=== PATIENT | female | born 1970 | race African-American/Black ===

== ENCOUNTER 2018-08-06 00:53 | Emergency (ER) | payer BC ==
[~2018-08-06] VITALS: Ht 152.4 cm; Wt 95.9 kg
[2018-08-06 01:00] VITALS: Ht 152.4 cm; Wt 95.9 kg
[2018-08-06] MEDS ORDERED: ZOFRAN ODT4 MG/UDTAB (01:03)
[2018-08-06 01:53] LABS: APPEARANCE CLEAR (CLEAR); BILIRUBIN NEGATIVE (NEGATIVE); COLOR YELLOW (YELLOW); GLUCOSE NEGATIVE (NEGATIVE); KETONE NEGATIVE (NEGATIVE); NITRITE NEGATIVE (NEGATIVE); PROTEIN NEGATIVE (NEGATIVE); SPECIFIC GRAVITY 1.015 (1.005-1.020); UROBILINOGEN NORMAL (NORMAL)
[2018-08-06 01:55] LABS: BASOPHILS 0.6 % (0-2); EOSINOPHILS 2.8 % (0-7); HEMATOCRIT 40.3 % (36.0-48.0); HEMOGLOBIN 13.4 g/dL (12-16); IMMATURE GRANULOCYTES 0.2 % (0-5); LYMPHOCYTES 38.4 % (15-50); MCH 29.7 pg (26.0-34.0); MCHC 33.3 g/dL (31.0-37.0); MCV 89.4 fL (80.0-100.0); MEAN PLATELET VOLUME 10.9 fL (7.4-10.4); PLATELET COUNT 258 10x3/uL (130-400); RBC 4.51 10x6/uL (4.00-5.40); RDW 13.3 % (11.5-14.5); WBC 6.5 10x3/uL (4.8-10.8)
[2018-08-06 02:08] LABS: ALBUMIN 3.1 g/dL (3.4-5.0); ANION GAP 9.2 mmol/L (8-16); BILIRUBIN - TOTAL 0.44 mg/dL (0.2-1.3); CALCIUM 8.4 mg/dL (8.5-10.1); CARBON DIOXIDE 30.6 mmol/L (21.0-32.0); CREATININE - SERUM 0.9 mg/dL (0.6-1.3); POTASSIUM - SERUM 3.8 mmol/L (3.5-5.1); PROTEIN - SERUM 7.3 g/dL (6.4-8.2)
[2018-08-06 02:14] LABS: HCG SERUM NEGATIVE (NEGATIVE)
[2018-08-06] MEDS ORDERED: ZOFRAN4 MG PO (04:08)
[2018-08-06] MEDS ORDERED: FLAGYL500 MG PO (04:08)
[2018-08-06] MEDS ORDERED: LEVOFLOXACIN500 MG PO (04:08)
[2018-08-06 05:43] VITALS: BP 115/65
== END 2018-08-06 05:43 | disposition home or self-care (01) ==
LOC: D.ER 00:53
PROVIDERS: Family Medicine
DX: K52.9 Noninfective gastroenteritis and colitis, unspecified (principal)

== ENCOUNTER 2020-07-02 17:05 | Emergency (ER) | payer OTHER ==
[~2020-07-02] VITALS: Ht 152.4 cm; Wt 100.0 kg
[~2020-07-02 17:05] MED LIST: FLAGYL500 MG PO; LEVOFLOXACIN500 MG PO; ZOFRAN ODT4 MG/UDTAB; ZOFRAN4 MG PO
[2020-07-02 17:10] VITALS: BP 117/77; Ht 152.4 cm; Wt 100.0 kg
[2020-07-02] MEDS ORDERED: DICLOFENAC SODI50 MG PO (19:22)
[2020-07-02] MEDS ORDERED: ZANAFLEX4 MG PO (19:22)
== END 2020-07-02 20:15 | disposition home or self-care (01) ==
LOC: D.ER 17:05
DX: S29.012A Strain of muscle and tendon of back wall of thorax, initial encounter (principal); S16.1XXA Strain of muscle, fascia and tendon at neck level, initial encounter; M25.551 Pain in right hip; V89.2XXA Person injured in unspecified motor-vehicle accident, traffic, initial encounter; Y93.9 Activity, unspecified; Y92.9 Unspecified place or not applicable

== ENCOUNTER 2020-08-21 20:34 | Emergency (ER) | payer OTHER ==
[~2020-08-21] VITALS: Ht 152.4 cm; Wt 101.2 kg
[~2020-08-21 20:34] MED LIST changes: +DICLOFENAC SODI50 MG PO; +ZANAFLEX4 MG PO
[2020-08-21 20:44] VITALS: Ht 152.4 cm; Wt 101.2 kg
[2020-08-22] MEDS ORDERED: MEDROL DOSE PACK4 MG PO (00:01)
[2020-08-22] MEDS ORDERED: NAPROSYN500 MG PO (00:01)
[2020-08-22] MEDS ORDERED: CYCLOBENZAPRINE10 MG PO (00:01)
[2020-08-22 00:17] VITALS: BP 127/71
== END 2020-08-22 00:17 | disposition home or self-care (01) ==
LOC: D.ER 20:34
DX: M54.30 Sciatica, unspecified side (principal); M54.5 Low back pain